=== PATIENT | female | born 1965 | race Caucasian/White ===

== ENCOUNTER 2023-05-17 10:15 | Emergency (ER) | payer MEDICARE, SELFPAY ==
[2023-05-17 10:17] VITALS: BP 131/95; PULSE 69; RESP 16; TEMP 37; O2SAT 96
[2023-05-17] MEDS: Lidocaine 5% Patch 1 PATCH TP (11:16)
[2023-05-17] MEDS: Ketorolac 30 MG/ML VIAL IM (11:16)
[2023-05-17] MEDS: diazePAM 5 MG TAB PO (11:16)
--- NOTE | 2023-05-17 12:15 | ED.GENADUL_ITS ---
Discharge Plan Disposition Patient Disposition: Home Condition: Stable Discharge Details Clinical Impression: Acute right-sided low back pain with right-sided sciatica Primary Care Provider: Unknown,Unknown ED Provider: Dilshad Pal Home Meds and New Rx's Prescriptions: New lidocaine [Lidoderm] 5 % adhesive patch,medicated 1 patch topical DAILY Qty: 15 0RF Rx Instructions: leave on most painful area for up to 12 hrs diazepam [Valium] 2 mg tablet 2 mg PO BID PRNQty: 10 0RF ibuprofen 600 mg tablet 600 mg PO Q8H PRNQty: 60 0RF Continued dextroamphetamine-amphetamine [Adderall] 20 mg Tablet 20 mg PO DAILY No Action carisoprodol [Soma] 350 mg Tablet 350 mg PO PRN PRN gabapentin 600 mg Tablet 600 mg PO DAILY meloxicam 15 mg Tablet 15 mg PO DAILY carbamazepine 300 mg Capsule, Er Multiphase 12 Hr 300 mg PO BID Discharge Instructions Instructions: Acute Low Back Pain (ED), Lumbar Radiculopathy (ED) Additional Instructions: Avoid any activities that worsen symptoms. Please take ibuprofen over the counter. Take 600mg by mouth every 6 hours as needed for pain. Please take acetaminophen (tylenol) - 650mg every 6 hours by mouth as needed for pain. Use lidocaine patches. Dose according to label. Please contact your primary care physician to arrange follow-up. Return to the ER immediately for any worsening or new concerning symptoms including increasing pain, numbness, weakness, bowel or bladder dysfunction. Stand Alone Forms: Physical Therapy Referral Discharge Data Discharge Date/Time-TO BE ENTERED AT DEPARTURE: 05/17/23 12:56 Medical Decision Making 57-year-old female here with acute exacerbation of low back pain with radiation to right leg over the past week. Patient has no signs of cauda equina. Neurologically intact. No history of recent trauma. Patient was treated with patient was treated with Toradol IM, Valium orally, lidocaine patch. Patient was reassessed and noted significant improvement in discomfort. Plan to continue NSAIDs. I also prescribed a short course of Valium for muscle relaxant. Plan for discharge with outpatient follow-up. Disposition decision was made weighing the risks and benefits of hospitalization versus outpatient treatment, the risk for further decompensation, and the patient's wishes. The patient was stable and requested discharge. Prior to discharge, my usual and customary return precautions were reviewed with the patient - this included follow-up instructions and reason to return to the emergency department if condition worsens, does not improve as expected, or other new concerns arise. HPI General Mode of arrival: ambulatory . Date/Time Provider Initiated Documentation: 05/17/23 10:43 . Limitations to Documentation: no limitations . Information obtained by: patient and family . HPI Narrative: 57-year-old female presents with chief complaint of back pain. Patient does note chronic intermittent back pain. She states she has had acute exacerbation over the past week. Pain radiates from low back to right buttock and then down lateral leg to the knee. Patient does not recall any specific injury. Patient denies associated numbness or tingling. Patient denies associated fever. No bowel or bladder dysfunction. Related Data Home Medications Medication Instructions Recorded Confirmed carbamazepine 300 mg 300 mg PO BID 05/17/23 05/17/23 capsule,extended release [id number] carisoprodol 350 mg tablet (Soma) 350 mg PO PRN PRN 05/17/23 05/17/23 dextroamphetamine-amphetamine 20 20 mg PO DAILY 05/17/23 05/17/23 mg tablet (Adderall) diazepam 2 mg tablet (Valium) 2 mg PO BID PRN #10 tabs 05/17/23 gabapentin 600 mg tablet 600 mg PO DAILY 05/17/23 05/17/23 ibuprofen 600 mg tablet 600 mg PO Q8H PRN #60 tabs 05/17/23 lidocaine 5 % topical patch 1 patch topical DAILY #15 ea 05/17/23 (Lidoderm) meloxicam 15 mg tablet 15 mg PO DAILY 05/17/23 05/17/23 Previous Rx's Medication Instructions Recorded diazepam 2 mg tablet (Valium) 2 mg PO BID PRN #10 tabs 05/17/23 ibuprofen 600 mg tablet 600 mg PO Q8H PRN #60 tabs 05/17/23 lidocaine 5 % topical patch 1 patch topical DAILY #15 ea 05/17/23 (Lidoderm) General Stated Complaint: Nk/Back Pain SEVERINO: 4 Review of Systems All systems reviewed & are unremarkable except as noted in HPI and below Constitutional Constitutional: Denies fever(s) Musculoskeletal Musculoskeletal: Reports as per HPI PFSH All Active Problems Acute right-sided low back pain with right-sided sciatica (Acute) Social History Smoking/Tobacco Use Status: Former Tobacco Use Smoking risk assessment performed?: Yes Alcohol Intake: never Drug use: Occasionally Substance use type: marijuana Exam Const General: cooperative and no acute distress HENMT Mouth: moist mucous membranes Eyes Conjunctivae: normal conjunctivae Sclera: normal sclerae Resp Auscultation: clear to auscultation bilaterally, no rales, no rhonchi and no wheezes Cardio Rate: regular rate and not tachycardic Rhythm: regular rhythm GI Palpation: soft, no masses and nontender Back/Spine/Pelvis Back: No erythema, No warmth and No ecchymosis Cervical Spine: No cervical spinal tenderness Thoracic/Lumbar Spine: paraspinal tenderness (lumbar right), No thoracic spinal tenderness and No lumbar spinal tenderness Sacroiliac joints: on the right tender to palpation Skin General skin exam: no rashes or lesions noted Neuro General: patient alert, patient awake and tone normal Other: Strength 5 out of 5 bilateral lower extremities, distal sensation intact bilateral lower extremities, no saddle anesthesia, patellar reflexes 2+ bilateral Extrem General: no edema Psych Appearance: grossly normal Mental Status: mental status grossly normal Speech and Movement: speech and movement normal Course Vital Signs Vital signs: Vital Signs Temperature 37.0 C 05/17/23 10:17 Pulse 69 05/17/23 10:17 Respiratory Rate 16 05/17/23 10:17 Blood Pressure 131/95 H 05/17/23 10:17 Pulse Oximetry 96 05/17/23 10:17 Temperature 37.0 C 05/17/23 10:17 Temperature Source Tympanic 05/17/23 10:17 Pulse 69 05/17/23 10:17 Respiratory Rate 16 05/17/23 10:17 Respiratory Effort Normal, Non-Labored 05/17/23 11:40 Blood Pressure 131/95 H 05/17/23 10:17 Pulse Oximetry 96 05/17/23 10:17
[2023-05-17 12:55] VITALS: BP 131/78; PULSE 58; RESP 16; O2SAT 95
== END 2023-05-17 12:56 | disposition home or self-care (01) ==
PROVIDERS: Emergency Provider Student in an Organized Health Care Education/Training Program
DX: M54.31 Sciatica, right side (principal); M54.50 Low back pain, unspecified
CPT/HCPCS: 96372; 99284; J1885

== ENCOUNTER 2025-04-02 07:55 | Emergency (ER) | payer MEDICARE, SELFPAY ==
[2025-04-02 08:20] VITALS: BP 127/72; PULSE 65; RESP 18; TEMP 36.8; O2SAT 95
--- NOTE | 2025-04-02 10:15 | DI.RAD_ITS ---
Exam(s) XR RIBS LT W PA LAT CHEST EXAM: XR RIBS LT W PA LAT CHEST CLINICAL HISTORY: left rib pain. TECHNIQUE: 2D digital imaging was performed. COMPARISON: No exams were available for comparison FINDINGS: Total 6 views: Left ribs-four views: There is no obvious acute left rib fracture no rib lesions. Chest x-ray-two views: Heart size upper normal mediastinum not widened. Right lung is clear. There is infiltrate and atelectasis in the left lower lobe. No pneumothorax. No obvious pleural effusion IMPRESSION: Left lower lobe infiltrate and atelectasis. Requires follow-up to resolution No obvious left rib findings. DATA REPOSITORY: RADIATION DOSE DELIVERED:
--- NOTE | 2025-04-02 10:29 | DI.CT_ITS ---
Exam(s) CT ABDOMEN PELVIS W EXAM: CT ABDOMEN PELVIS W CLINICAL HISTORY: LUQ pain and flank pain, fell on stump. TECHNIQUE: Imaging Protocol: Axial computed tomography images with coronal and sagittal reformatted images were created and reviewed CONTRAST MATERIAL: Intravenous: Omnipaque-350 100cc Oral: None COMPARISON: No exams were available for comparison FINDINGS: VISUALIZED LUNG BASES/RIBS: There is a mildly displaced fracture of the posterolateral aspect of the left 9th rib and there is a very subtle nondisplaced fracture of the adjacent left 10th rib. There is also a fracture of the posterolateral aspect of the left 8th rib which is only partially included in the field of view.. There is infiltrate in both lung bases. No significant pleural effusions. There is no pneumothorax evident. ABDOMEN: There is no ascites. LIVER: Intact. No laceration. No significant lesions. No dilated intrahepatic ducts. GALLBLADDER/BILIARY: No obvious gallbladder pathology. CBD is not dilated. PANCREAS: No evidence of pancreatic mass nor dilatation of the pancreatic duct. SPLEEN: Spleen size is normal. There are multiple benign cysts in the spleen measuring up to 1.7 cm size. No evidence of splenic laceration. Splenic and portal veins are patent. ADRENALS: There are no significant adrenal masses. KIDNEYS:No evidence of renal laceration or subcapsular hematomas. Small cortical cysts noted no solid renal masses. No calculi nor hydronephrosis.. ABDOMINAL AORTA: Intact. Abdominal aorta is not enlarged. LYMPH NODES:There is no retroperitoneal nor paraaortic adenopathy. ABDOMINAL WALL: No evidence of significant anterior abdominal wall nor inguinal hernia. No large subcutaneous hematomas. GI: No evidence of bowel wall nor mesenteric hematoma. No bowel obstruction. PELVIS: GI: No evidence of appendicitis.No evidence of sigmoid diverticulitis. LYMPH NODES: There is no intrapelvic nor inguinal adenopathy. REPRODUCTIVE: Uterus is surgically absent. No abnormal adnexal masses nor free fluid in the pelvis. URINARY BLADDER: Intact. No extravasation. No focal findings. OSSEOUS: Left side rib fractures as described above Fractures in the pelvis and vertebral bodies. No listhesis. IMPRESSION: 1. There fractures of the left 8th, 9th and 10th ribs. There may be additional fractures above this level which are not included in the field of view. Please note that these left-sided rib fractures are significantly more visible on CT than on the proceeding plain films. 2. There is infiltrate in both lung bases. No pleural effusions. No pneumothorax. 3. There are benign cysts in the spleen but no evidence of splenic laceration Report called by myself to ER provider 04/02/2025 at 2:50 p.m. RADIATION DOSE DELIVERED: 325.68mGy.cm Total DLP DATA REPOSITORY: All CT scans at this facility are submitted to the National Radiology Data Registry (NRDR) Dose Index Registry (DIR) with the [employer] ([employer]). RADIATION OPTIMIZATION: All CT scans at this facility use at least one of these dose optimization techniques: automated exposure control; mA and/or kV adjustment per patient size (includes targeted exams where dose is matched to clinical indication); or iterative reconstruction.
[2025-04-02 10:54] LABS: Glucose Negative (Negative)
[2025-04-02 11:00] LABS: RBC 0-2 HPF (0-2); WBC 0-2 HPF (0-5)
[2025-04-02 11:01] LABS: C & S Indicated? No
[2025-04-02] MEDS: HYDROmorphone 2 MG/ML SYR 1 MG IVP ×3 (11:22→16:29)
[2025-04-02 11:25] LABS: Abs Immature Grans 0.02 10^3/uL (0.0-0.06); HCT 42.9 % (36.0-46.0); HGB 13.9 g/dL (11.2-15.7); Immature Grans % 0.3 %; MCH 32.4 pg (27.0-33.0); MCHC 32.4 % (32.0-36.0); MCV 100 fL (80-95); MPV 8.8 fL (8.0-11.0); Platelet Count 275 10^3/uL (130-400); RBC 4.29 10^6/uL (3.93-5.22); RDW 12.3 % (11.7-14.6); RDW-SD 45.1 fL; WBC 7.41 10^3/uL (4.4-10.8)
--- NOTE | 2025-04-02 11:25 | W.ED.GENAD ---
Discharge Plan Discharge Details Chief Complaint: Nk/Back Pain Primary Care Provider: Unknown,Unknown ED Provider: Ana Lilia Pizraro Home Meds and New Rx's Prescriptions: No Action dextroamphetamine-amphetamine [Adderall] 20 mg Tablet 20 mg PO DAILY lidocaine [Lidoderm] 5 % adhesive patch,medicated 1 patch topical DAILY Qty: 15 0RF Rx Instructions: leave on most painful area for up to 12 hrs diazepam [Valium] 2 mg tablet 2 mg PO BID PRNQty: 10 0RF ibuprofen 600 mg tablet 600 mg PO Q8H PRNQty: 60 0RF carisoprodol [Soma] 350 mg Tablet 350 mg PO PRN PRN gabapentin 600 mg Tablet 600 mg PO DAILY meloxicam 15 mg Tablet 15 mg PO DAILY carbamazepine 300 mg Capsule, Er Multiphase 12 Hr 300 mg PO BID multivitamin with folic acid [Tab-A-W[place]] 400 mcg tablet 1 tab PO DAILY Patient Comments: TAKE ONE TABLET BY MOUTH EVERY DAY oxycodone-acetaminophen 5-325 mg tablet 1 tab PO TID PRN Patient Comments: TAKE ONE TABLET BY MOUTH THREE TIMES A DAY NEEDED bupropion HCl 200 mg tablet sustained-release 12 hr 200 mg PO BID Patient Comments: TAKE 1 TABLET BY MOUTH TWICE A DAY FOR 90 DAYS HPI General Date/Time Provider Initiated Documentation: 04/02/25 08:58. HPI Narrative: 59-year-old female reports trip and fall on Wednesday while clearing trees. Legs gave out, causing fall. History of back pain, but states this incident is unprecedented. No changes in bowel or bladder function, fever, or chills. Managing pain with bed rest, oxycodone, and Tylenol. No head injury, additional complaints, or abdominal pain. Related Data Home Medications ?Medication ?Instructions ?Recorded ?Confirmed carbamazepine 300 mg 300 mg PO BID 05/17/23 04/02/25 capsule,extended release [id number] carisoprodol 350 mg tablet (Soma) 350 mg PO PRN PRN 05/17/23 04/02/25 dextroamphetamine-amphetamine 20 20 mg PO DAILY 05/17/23 04/02/25 mg tablet (Adderall) diazepam 2 mg tablet (Valium) 2 mg PO BID PRN #10 tabs 05/17/23 04/02/25 gabapentin 600 mg tablet 600 mg PO DAILY 05/17/23 04/02/25 ibuprofen 600 mg tablet 600 mg PO Q8H PRN #60 tabs 05/17/23 04/02/25 lidocaine 5 % topical patch 1 patch topical DAILY #15 ea 05/17/23 04/02/25 (Lidoderm) meloxicam 15 mg tablet 15 mg PO DAILY 05/17/23 04/02/25 bupropion HCl 200 mg tablet,12 hr 200 mg PO BID 04/02/25 04/02/25 sustained-release multivitamin with folic acid 400 1 tab PO DAILY 04/02/25 04/02/25 mcg tablet (Tab-A-[place]) oxycodone-acetaminophen 5 mg-325 1 tab PO TID PRN 04/02/25 04/02/25 mg tablet Previous Rx's ?Medication ?Instructions ?Recorded diazepam 2 mg tablet (Valium) 2 mg PO BID PRN #10 tabs 05/17/23 ibuprofen 600 mg tablet 600 mg PO Q8H PRN #60 tabs 05/17/23 lidocaine 5 % topical patch 1 patch topical DAILY #15 ea 05/17/23 (Lidoderm) Allergies Allergy/AdvReac Type Severity Reaction Status Date / Time rofecoxib (From Vioxx) Allergy Severe Anaphylaxis Verified 04/02/25 08:23 Sulfa (Sulfonamide Allergy Severe Anaphylaxis Verified 04/02/25 08:23 Antibiotics) General Stated Complaint: Nk/Back Pain SEVERINO: 3 Exam Narrative Exam Narrative: General Appearance: Alert and oriented, in no acute distress. Vital signs: Within normal limits. HEENT: Within normal limits. Respiratory: Within normal limits. Gastrointestinal: Mild left upper quadrant tenderness. No abdominal bruit or pulsatile mass. Back, Musculoskeletal: Tenderness to palpation over left flank region without visible signs of trauma. No tenderness to spine, cervical, thoracic, or lumbar. Skin: Warm and dry, no rash. Neurological: Neurovascularly intact. Course Vital Signs Vital signs: Vital Signs Temperature 36.8 C 04/02/25 08:20 Pulse 65 04/02/25 08:20 Respiratory Rate 18 04/02/25 08:20 Blood Pressure 127/72 04/02/25 08:20 Pulse Oximetry 95 04/02/25 08:20 Temperature 36.8 C 04/02/25 08:20 Temperature Source Tympanic 04/02/25 08:20 Pulse 65 04/02/25 08:20 Respiratory Rate 18 07/14/25 08:20 Blood Pressure 127/72 04/02/25 08:20 Blood Pressure Position Sitting 04/02/25 08:20 Pulse Oximetry 95 04/02/25 08:20 Oxygen Delivery Method Room Air 04/02/25 08:20 Oxygen Flow Rate 0 04/02/25 08:20 Pain Level 10 04/02/25 08:20 Lab/Test Results Lab/Test Results: Laboratory Tests Range/Units 04/02/25 10:45 Urine Color (Yellow) Yellow Urine Clarity (Clear) Clear Urine pH (5-8) 5.5 Ur Specific Webb (1.005-1.025) 1.010 Urine Protein (Neg-Trace) mg/dL Negative Urine Ketones (Negative) mg/dL Negative Urine Blood (Negative) Trace-intact H Urine Nitrite (Negative) Positive H Urine Bilirubin (Negative) Negative Urine Urobilinogen (Up to 0.2) mg/dL 0.2 Ur Leukocyte Esterase (Negative) Trace H Urine RBC (0-2) HPF 0-2 Urine WBC (0-5) HPF 0-2 Ur Epithelial Cells (Negative) HPF Rare Urine Crystals (Negative) HPF Negative Urine Bacteria (Negative) HPF Many Urine Casts (Negative) LPF Negative Urine Mucus (Negative) Negative Ur Culture Indicated? No Urine Glucose (Negative) mg/dL Negative Medical Decision Making Results: CBC CMP without acute abnormality urinalysis clear without blood CT abdomen and pelvis shows multiple rib fractures chest x-ray shows evidence of left lower lobe infiltrate consistent with rib fractures Case discussed with radiologist Initial Assessment: 59-year-old female presents with report of trip and fall while clearing trees, resulting in back pain. Tenderness to palpation over left flank region without visible signs of trauma. No head injury, changes in bowel or bladder function, fever, or chills. Taking prescribed oxycodone and Tylenol. ED Course: - Order CT scan of abdomen and pelvis to evaluate for splenic injury - Perform chest x-ray to assess for rib fractures - Conduct diagnostic blood work, including urinalysis - Given CT shows pneumonia with multiple rib fractures will order blood cultures ceftriaxone and doxycycline patient will need likely admission secondary to significant pain for intercostal block - Pending return call from surgery -unFortunately secondary to capacity today the CT scan was significantly delayed -care transitioned pending surgical consultation and likely admission Final Assessment: Patient experienced a fall resulting in back pain with tenderness over the left flank region. No visible signs of trauma or additional complaints. Diagnostic imaging and blood work ordered to evaluate for potential injuries. Clinical Impression: - Fall MDM Components Evaluation: - Number of Differential Diagnoses or Management Options: Fall - Amount and Complexity of Data Reviewed: CT scan of abdomen and pelvis, chest x-ray, diagnostic blood work including urinalysis - Risk of Complication and Morbidity or Mortality: Potential splenic injury, rib fractures [facility] Social History Smoking/Tobacco Use Status: Former Tobacco Use Smoking risk assessment performed?: Yes Alcohol Intake: never Drug use: Occasionally Substance use type: marijuana
[2025-04-02 11:47] LABS: ALT 51 U/L (14-59); AST 25 U/L (15-37); Albumin 3.8 g/dL (3.4-5.0); Alkaline Phosphatase 125 U/L (46-116); Anion Gap 5.6 mmol/L (3-11); BUN 19 mg/dL (7-18); Bilirubin, Total 0.3 mg/dL (0.2-1.0); CO2 31.4 mmol/L (21.0-32.0); Calcium 9.0 mg/dL (8.5-10.1); Chloride 105 mmol/L (98-107); Estimated GFR 85.35 (mL/min/1.73m2); Glucose 92 mg/dL (74-106); Potassium 4.0 mmol/L (3.5-5.1); Sodium 142 mmol/L (136-145); Total Protein 6.9 g/dL (6.4-8.2)
[2025-04-02 12:20] LABS: Creatine Kinase 85 U/L (26-192)
[2025-04-02] MEDS: Normal Saline - Diluent 50 ML VIAL IJ (14:10)
[2025-04-02] MEDS: Omnipaque 350 MG/ML 500 ML BTL-Imaging package 75 ML IJ (14:13)
[2025-04-02] MEDS: cefTRIAXone 1 GM/50 ML BAG IVPB (16:28)
[2025-04-02 16:29] VITALS: BMI 20.9
[2025-04-02] MEDS: DOXYCYCLINE 100 MG in Normal Saline 100 ML IVPB (16:29)
--- NOTE | 2025-04-02 16:29 | W.ANESPRE ---
General Info Date of Service Date Performed: 04/02/25 Height: 5 ft 6 in Weight: 58.967 kg Body Mass Index (BMI): 20.9 Meds Allergies and Home Medications Allergies Allergy/AdvReac Type Severity Reaction Status Date / Time rofecoxib (From Vioxx) Allergy Severe Anaphylaxis Verified 04/02/25 08:23 Sulfa (Sulfonamide Allergy Severe Anaphylaxis Verified 04/02/25 08:23 Antibiotics) Home Medication ?Medication ?Instructions ?Recorded carbamazepine 300 mg 300 mg PO BID 05/17/23 capsule,extended release [id number] carisoprodol 350 mg tablet (Soma) 350 mg PO PRN PRN 05/17/23 dextroamphetamine-amphetamine 20 20 mg PO DAILY 05/17/23 mg tablet (Adderall) diazepam 2 mg tablet (Valium) 2 mg PO BID PRN #10 tabs 05/17/23 gabapentin 600 mg tablet 600 mg PO DAILY 05/17/23 ibuprofen 600 mg tablet 600 mg PO Q8H PRN #60 tabs 05/17/23 lidocaine 5 % topical patch 1 patch topical DAILY #15 ea 05/17/23 (Lidoderm) meloxicam 15 mg tablet 15 mg PO DAILY 05/17/23 bupropion HCl 200 mg tablet,12 hr 200 mg PO BID 04/02/25 sustained-release multivitamin with folic acid 400 1 tab PO DAILY 04/02/25 mcg tablet (Tab-A-Waleska) oxycodone-acetaminophen 5 mg-325 1 tab PO TID PRN 04/02/25 mg tablet Current Visit Medications: Current Medications Generic Name Dose Route Start Last Admin Trade Name Tri PRN Reason Stop Dose Admin Doxycycline Hyclate 100 mg/ 100 mls @ 100 mls/hr 04/02/25 15:38 Sodium Chloride IVPB 04/02/25 16:37 NOW ONE Iohexol 75 ml 04/02/25 14:15 04/02/25 14:13 Omnipaque 350 Mg/Ml 500 Ml Btl-Imaging Package IJ 05/02/25 23:59 75 ml DIRECTED KIA Administration Sodium Chloride 50 ml 04/02/25 14:15 04/02/25 14:10 Normal Saline - Diluent 50 Ml Vial IJ 50 ml .FOR DI USE KIA Administration PFSH Tobacco Smoking/Tobacco Use Status: Former Tobacco Use Alcohol Alcohol Intake: never Substance Use Substance use: Occasionally Substance use type: marijuana Vital Signs and Lab Results Vital Signs Most Recent Vital Signs in EMR: Most Recent Vital Signs Temp Pulse Resp BP Pulse Ox 36.8 C 65 18 127/72 95 04/02/25 08:20 04/02/25 08:20 04/02/25 08:20 04/02/25 08:20 04/02/25 08:20 Lab Results 04/02/25 11:10 04/02/25 10:26 Complete Blood Count: WBC, (4.4-10.8) 7.41 10^3/uL Today, 11:10 RBC, (3.93-5.22) 4.29 10^6/uL Today, 11:10 Hgb, (11.2-15.7) 13.9 g/dL Today, 11:10 Hct, (36.0-46.0) 42.9 % Today, 11:10 Plt Count, (130-400) 275 10^3/uL Today, 11:10 Complete Metabolic Panel: Sodium, (136-145) 142 mmol/L Today, 10:26 Potassium, (3.5-5.1) 4.0 mmol/L Today, 10:26 Chloride, (98-107) 105 mmol/L Today, 10:26 Carbon Dioxide, (21.0-32.0) 31.4 mmol/L Today, 10:26 BUN, (7-18) 19 mg/dL H Today, 10:26 Creatinine, (0.55-1.02) 0.8 mg/dL Today, 10:26 Est GFR (CKD-EPI 2020), (mL/min/1.73m2) 85.35 Today, 10:26 Calcium, (8.5-10.1) 9.0 mg/dL Today, 10:26 Albumin, (3.4-5.0) 3.8 g/dL Today, 10:26 Glucose, (74-106) 92 mg/dL Today, 10:26 Liver Function Panel: ALT, (14-59) 51 U/L Today, 10:26 AST, (15-37) 25 U/L Today, 10:26 Cardiac Panel: Creatine Kinase, (26-192) 85 U/L Today Anesthesia Assessment and Plan Anesthesia History Personal History: No History of Anesthesia Complications Family History: No Family History of Anesthesia Complications Exercise Tolerance Exercise Tolerance: Metabolic Equivalents>4 Cardiac & Pulmonary Exam Cardiac Exam: Normal S1/S2 Heart Sounds Pulmonary Exam: Clear Bilateral Breath Sounds Implantable Cardiac Device Does patient have a Pacemaker or an ICD?: No Airway Exam Known Difficult Airway: No Mallampati Class: 2 Mouth Opening: Normal (> 3cm) Thyromental Distance: Greater than 3 cm Neck Range of Motion: Full ROM Neck Circumference: Normal Teeth Condition: Normal Dentition ASA Classification ASA Score: ASA 2 Emergency Case?: No NPO Status NPO Status: Full Stomach Anesthesia Plan Resuscitation Status: Full Code Anesthesia Technique: Primary Nerve Block Airway Planned: Natural Airway Monitors Used: Standard Monitors
[2025-04-02 17:14] VITALS: BP 163/88; PULSE 62; RESP 18; O2SAT 96
--- NOTE | 2025-04-02 17:23 | W.ANESNERVE ---
Nerve Block Single Injection Procedure Date and Time Date Performed: 04/02/25 Procedure Start: 17:01 Location Where Procedure Performed Procedure Location: Emergency Department Reason Performed: Acute Pain Management Pain Diagnosis: Rib Pain Requesting Provider: Hector Gates Timeout Performed Timeout Performed: Yes Monitoring Used ECG, Blood Pressure, SpO2 and See EMR for corresponding vital signs Sterility Sterility: Hand Hygiene, Surgical Cap, Surgical Mask, Sterile Gloves and Chlorhexidine Sedation Given During Procedure Sedation Given (Indicate Dose Given): No Sedation given Patient Mental Status Patient Mental Status: Awake Nerve Block 1st Nerve Block: Laterality: Left Block Type: Erector Spinae (Lower) Ultrasound Image Saved?: Yes Needle / Catheter Used: 100mm SonoPlex II Local Anesthetic Bolus (Indicate Dose Given): Lidocaine used for local infiltration of skin, Injected in 3-5ml increments after negative blood aspiration, Bupivacaine 0.5% Dose:: 20 and Exparel Dose:: 10ml Additives (Indicate Dose Given): None Ultrasound: Sterile probe cover and gel used Nerve Stimulator: Not Used Paresthesia: None Procedure Tolerated: No Complications and Patient tolerated well Procedure Outcome: Successful Procedure Comment: Pt. still has left hip area discomfort not covered by block. Block straight forward with good relief from 11/10 down to 4/10, taking deep breaths and lifting arm above head without grimace. Performed By: Uriah Olivera
--- NOTE | 2025-04-02 17:26 | ED.PROG_ITS ---
Date of service: 04/02/25 Time of Service: 17:27 Medical Decision Making This dictation utilizes [id number] dictation software and may contain unedited grammatical errors. Patient seen in signout from Ana Lilia Pizarro PA-C, please see her complete note. Essentially this 59-year-old female suffered a fall outside her home in [facility] on Wednesday and has been having excruciating pain since, she has 3 rib fractures and likely pulmonary contusion, the prior provider did question pneumonia but the patient has had no fevers, notes no severe coughing or productive sputum leading up to this, states she has a cough normally. Patient is awaiting consult by anesthesia and possibly general surgery for her rib fr actures for a number of hours as they are in the OR at time of sign-out, has required significant doses of Dilaudid for pain control PRN, but does take oxycodone TID chronically. No pending studies at time of signout. Patients' medical history: [ ]. Family and social history: [ ]. Differential / pathologies of concern include rib fractures, pulmonary contusions, pneumonia, not respiratory failure. Diagnostic studies of: - Reviewed prior labs, no leukocytosis, shows left 8th, 9th and 10th rib fractures. Interventions of: -rib blockperformed by VENEER SUPERVISOR, please see their procedural note- significant improvement. ED Course/Assessment/Plan: 59-year-old female is awaiting consult by VENEER SUPERVISOR and possibly general surgery at time of signout, they did present around 1720 and performed a rib block with significant relief, I counseled the patient on the possible need for ops admission as they have high risk for pneumonia, I do not suspect a severe pneumonia at this time I think her pulmonary findings are more indicative of a pulmonary contusion and she has been nontoxic overall, I did have respiratory therapy come down and perform some patient education on incentive spirometry. Counseled the patient that I was happy to consult with general surgery and hospitalist service for an ops admission but that she could also return to the emergency department for any developing symptoms of respiratory distress, intractable pain, fevers, productive coughs, I counseled her on sleeping in the recliner chair. The patient engaged in shared decision making and did state they wished to be discharged home as they are more comfortable in that space and that they would return for any developing complications, they live with spouse who can also provide home observation for any return for complications. Findings not consistent with hypoxic respiratory failure, toxic presentation, severe pneumonia. Disposition of Multiple Fractures of Ribs of Right Side. Patient verbalized understanding of the plan and return to ED criteria and engaged in shared decision making. Medical Records Medical records reviewed: Yes I reviewed the patient's medical records. Imaging Data Radiologic Study: Attestation: I personally reviewed and interpreted this imaging study as follows: Imaging: X-Ray Radiologist's impression: EXAM: XR RIBS LT W PA LAT CHEST CLINICAL HISTORY: left rib pain. TECHNIQUE: 2D digital imaging was performed. COMPARISON: No exams were available for comparison FINDINGS: Total 6 views: Left ribs-four views: There is no obvious acute left rib fracture no rib lesions. Chest x-ray-two views: Heart size upper normal mediastinum not widened. Right lung is clear. There is infiltrate and atelectasis in the left lower lobe. No pneumothorax. No obvious pleural effusion IMPRESSION: Left lower lobe infiltrate and atelectasis. Requires follow-up to resolution No obvious left rib findings. Radiologic Study #2: Attestation: I personally reviewed and interpreted this imaging study as follows: Imaging: CT Scan Radiologist's impression: EXAM: CT ABDOMEN PELVIS W CLINICAL HISTORY: LUQ pain and flank pain, fell on stump. TECHNIQUE: Imaging Protocol: Axial computed tomography images with coronal and sagittal reformatted images were created and reviewed CONTRAST MATERIAL: Intravenous: Omnipaque-350 100cc Oral: None COMPARISON: No exams were available for comparison FINDINGS: VISUALIZED LUNG BASES/RIBS: There is a mildly displaced fracture of the posterolateral aspect of the left 9th rib and there is a very subtle nondisplaced fracture of the adjacent left 10th rib. There is also a fracture of the posterolateral aspect of the left 8th rib which is only partially included in the field of view.. There is infiltrate in both lung bases. No significant pleural effusions. There is no pneumothorax evident. ABDOMEN: There is no ascites. LIVER: Intact. No laceration. No significant lesions. No dilated intrahepatic ducts. GALLBLADDER/BILIARY: No obvious gallbladder pathology. CBD is not dilated. PANCREAS: No evidence of pancreatic mass nor dilatation of the pancreatic duct. SPLEEN: Spleen size is normal. There are multiple benign cysts in the spleen measuring up to 1.7 cm size. No evidence of splenic laceration. Splenic and portal veins are patent. ADRENALS: There are no significant adrenal masses. KIDNEYS:No evidence of renal laceration or subcapsular hematomas. Small cortical cysts noted no solid renal masses. No calculi nor hydronephrosis.. ABDOMINAL AORTA: Intact. Abdominal aorta is not enlarged. LYMPH NODES:There is no retroperitoneal nor paraaortic adenopathy. ABDOMINAL WALL: No evidence of significant anterior abdominal wall nor inguinal hernia. No large subcutaneous hematomas. GI: No evidence of bowel wall nor mesenteric hematoma. No bowel obstruction. PELVIS: GI: No evidence of appendicitis.No evidence of sigmoid diverticulitis. LYMPH NODES: There is no intrapelvic nor inguinal adenopathy. REPRODUCTIVE: Uterus is surgically absent. No abnormal adnexal masses nor free fluid in the pelvis. URINARY BLADDER: Intact. No extravasation. No focal findings. OSSEOUS: Left side rib fractures as described above Fractures in the pelvis and vertebral bodies. No listhesis. IMPRESSION: 1. There fractures of the left 8th, 9th and 10th ribs. There may be additional fractures above this level which are not included in the field of view. Please note that these left-sided rib fractures are significantly more visible on CT than on the proceeding plain films. 2. There is infiltrate in both lung bases. No pleural effusions. No pneumothorax. 3. There are benign cysts in the spleen but no evidence of splenic laceration Report called by myself to ER provider 04/02/2025 at 2:50 p.m. Lab Data Lab results reviewed: Yes I reviewed the patient's lab results. Labs: 04/02/25 16:20 Blood Blood Culture - Pending 04/02/25 16:00 Blood Blood Culture - Pending Laboratory Tests Range/Units 04/02/25 04/02/25 04/02/25 10:26 10:45 11:10 WBC (4.4-10.8) 10^3/uL 7.41 RBC (3.93-5.22) 10^6/uL 4.29 Hgb (11.2-15.7) g/dL 13.9 Hct (36.0-46.0) % 42.9 MCV (80-95) fL 100 H MCH (27.0-33.0) pg 32.4 MCHC (32.0-36.0) % 32.4 RDW (11.7-14.6) % 12.3 Plt Count (130-400) 10^3/uL 275 MPV (8.0-11.0) fL 8.8 Immature Gran % % 0.3 Neutrophils % % 69.4 Lymphocytes % % 20.0 Monocytes % % 5.9 Eosinophils % % 3.6 Basophils % % 0.8 Nucleated RBC % (0.0-0.3) % 0.0 Absolute Neutrophils (1.2-6.7) 10^3/uL 5.14 Absolute Lymphocytes (1.2-3.4) 10^3/uL 1.48 Absolute Monocytes (0.1-0.8) 10^3/uL 0.44 Absolute Eosinophils (0.0-0.7) 10^3/uL 0.27 Absolute Basophils (0.0-0.2) 10^3/uL 0.06 Sodium (136-145) mmol/L 142 Potassium (3.5-5.1) mmol/L 4.0 Chloride (98-107) mmol/L 105 Carbon Dioxide (21.0-32.0) mmol/L 31.4 Anion Gap (3-11) mmol/L 5.6 BUN (7-18) mg/dL 19 H Creatinine (0.55-1.02) mg/dL 0.8 Est GFR (CKD-EPI 2020) (mL/min/1.73m2) 85.35 Glucose (74-106) mg/dL 92 Calcium (8.5-10.1) mg/dL 9.0 Total Bilirubin (0.2-1.0) mg/dL 0.3 AST (15-37) U/L 25 ALT (14-59) U/L 51 Alkaline Phosphatase (46-116) U/L 125 H Creatine Kinase (26-192) U/L 85 Total Protein (6.4-8.2) g/dL 6.9 Albumin (3.4-5.0) g/dL 3.8 Urine Color (Yellow) Yellow Urine Clarity (Clear) Clear Urine pH (5-8) 5.5 Ur Specific [place] (1.005-1.025) 1.010 Urine Protein (Neg-Trace) mg/dL Negative Urine Ketones (Negative) mg/dL Negative Urine Blood (Negative) Trace-intact H Urine Nitrite (Negative) Positive H Urine Bilirubin (Negative) Negative Urine Urobilinogen (Up to 0.2) mg/dL 0.2 Ur Leukocyte Esterase (Negative) Trace H Urine RBC (0-2) HPF 0-2 Urine WBC (0-5) HPF 0-2 Ur Epithelial Cells (Negative) HPF Rare Urine Crystals (Negative) HPF Negative Urine Bacteria (Negative) HPF Many Urine Casts (Negative) LPF Negative Urine Mucus (Negative) Negative Ur Culture Indicated? No Urine Glucose (Negative) mg/dL Negative Discharge Plan Disposition Patient Disposition: Home Condition: Stable Discharge Details Clinical Impression: Multiple fractures of ribs of right side Primary Care Provider: Unknown,Unknown ED Provider: Hector Gates Home Meds and New Rx's Prescriptions: Continued dextroamphetamine-amphetamine [Adderall] 20 mg Tablet 20 mg PO DAILY lidocaine [Lidoderm] 5 % adhesive patch,medicated 1 patch topical DAILY Qty: 15 0RF Rx Instructions: leave on most painful area for up to 12 hrs diazepam [Valium] 2 mg tablet 2 mg PO BID PRNQty: 10 0RF ibuprofen 600 mg tablet 600 mg PO Q8H PRNQty: 60 0RF carisoprodol [Soma] 350 mg Tablet 350 mg PO PRN PRN gabapentin 600 mg Tablet 600 mg PO DAILY meloxicam 15 mg Tablet 15 mg PO DAILY carbamazepine 300 mg Capsule, Er Multiphase 12 Hr 300 mg PO BID multivitamin with folic acid [Tab-A-Waleska] 400 mcg tablet 1 tab PO DAILY Patient Comments: TAKE ONE TABLET BY MOUTH EVERY DAY oxycodone-acetaminophen 5-325 mg tablet 1 tab PO TID PRN Patient Comments: TAKE ONE TABLET BY MOUTH THREE TIMES A DAY NEEDED bupropion HCl 200 mg tablet sustained-release 12 hr 200 mg PO BID Patient Comments: TAKE 1 TABLET BY MOUTH TWICE A DAY FOR 90 DAYS Discharge Instructions Instructions: How to Use an Incentive Spirometer, Rib fractures in adults Additional Instructions: You were seen in the emergency department for your multiple left rib fractures, you likely have some pulmonary contusion that should heal with time, we discussed possible observation admission to the hospital it was your preference to return home which is reasonable as you have no symptoms in the recent past of a toxic illness like pneumonia. We discussed your risk for developing pneumonia as well as sleeping in a recliner chair, please take 1000 mg of Tylenol 3-4 times per day for pain as well as your oxycodone, please call your provider that regularly prescribes your oxycodone and inform them of your multiple rib fractures as they may be open to providing you with an earlier refill if you need to increase your dose due to the acute condition. Your rib block should last 2 to 4 days, these rib fractures will take 6 to 8 weeks to heal. Please return for any developing fever, productive cough, respiratory distress or other emergent concerns. Discharge Data Discharge Date/Time-TO BE ENTERED AT DEPARTURE: 04/02/25 17:59
== END 2025-04-02 17:59 | disposition home or self-care (01) ==
PROVIDERS: Physician Assistant; Emergency Provider Physician Assistant
DX: S22.41XA Multiple fractures of ribs, right side, initial encounter for closed fracture (principal); W01.198A Fall on same level from slipping, tripping and stumbling with subsequent striking against other object, initial encounter
CPT/HCPCS: 99284; 99285; 96375; 96376; 00123; 76942; 80053; 82550; 87040; 96365; 96368; 71046; 71100; 74177; 81003; 81015; 85025; J0665; J0666; J0696; J1171